=== PATIENT | female | born 1935 | race Caucasian/White ===

== ENCOUNTER 2017-05-13 11:58 | Emergency (ER) | payer MEDICARE ==
[~2017-05-13] VITALS: Ht 152.4 cm; Wt 100.0 kg
[~2017-05-13 11:58] MED LIST: CEPH-512 PO; FURO40TA4 PO; LOSA50TA37 PO; METF850T2 PO; METR1KIT TP; OXYC1TAB24 PO
[2017-05-13 12:06] VITALS: BP 138/47; PULSE 57; O2SAT 93
--- NOTE | 2017-05-13 12:21 | ED.REPORT ---
HPI-General Illness Date of Service May 13, 2017 ED Provider: Rashaun Ovalle MD Patient is an 81 year old female with a hx of HTN and DM who presents to the ED complaining of a continuing L leg infection. Associated symptoms include redness , warmth, and swelling over her L lower leg. She was admitted for 4 days for sepsis and left leg cellulitis before being discharged on Keflex and Oxycodone. She has been on Keflex for 9 days and states the cellulitis is not any worse however has only gotten minimally better. She denies fevers, chills, or any other symptoms. 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 Nursing Notes Stated Complaint: POSSIBLE L LEG INFECTION Chief Complaint: Extremity Trauma Nursing Notes Reviewed: Yes Allergies: Coded Allergies: No Known Allergies (Verified , 05/13/17) Scheduled Cephalexin (Keflex) 500 Mg Capsule 500 MG PO QID Clindamycin (Clindamycin) 300 Mg Capsule 300 MG PO QID Furosemide (Furosemide) 40 Mg Tablet 40 MG PO BID Losartan Potassium (Losartan Potassium) 50 Mg Tablet 50 MG PO DAILY Metformin (Metformin) 850 Mg Tablet 850 MG PO BID Metronidazole/Skin Cleansr #23 (Rosadan 0.75% Cream Kit) 1 Each Kit.cl.crm 1 EACH TP BID Scheduled PRN oxyCODONE-Acetaminophen 5-325 mg (oxyCODONE-Acetaminophen 5-325 mg) 1 Each Tablet 1 TAB PO Q4H PRN PRN For Pain oxyCODONE-Acetaminophen 5-325 mg (oxyCODONE-Acetaminophen 5-325 mg) 1 Each Tablet 1-2 TAB PO Q6H PRN PRN For Pain General Time Seen by MD: 12:21 Chief Complaint Other (Extremity problem ) Hx Obtained From: Patient, Spouse Arrived By: Walk-in Sudden in Onset?: Yes Onset Occurred: More than a week ago... 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 Physical Exam Vital Signs Vital Signs Date Time Temp Pulse Resp B/P Pulse Ox O2 Delivery O2 Flow Rate FiO2 05/13/17 12:06 36.7 57 138/47 93 Room Air Initial VS: Reviewed, Vital signs abnormal Head / Eyes: Atraumatic, Normocephalic Neck: Full range of motion Respiratory: Breath sounds normal, Clear to auscultation, No respiratory distress Cardiovascular: Regular rate & rhythm, Heart sounds normal, Intact distal pulses Abdomen / GI: Soft, Non-tender Skin: Warm, Dry Neurologic: Alert, Oriented, Nonfocal Psychiatric: Mood/affect normal, Behavior normal, Normal thought content General/Constitutional: Awake, Alert, No acute distress Lower Extremity / Pelvis / MS: No deformity Erythema, warmth, and sweeling over the left calf. Tender to palpation. 1 cm ulceration to skin (pt states site of previous dermatology procedure) Interpretation & Diagnostics Lab Results Interpretation Result Diagram: 05/13/17 1314 05/13/17 1314 Test 05/13/17 13:14 White Blood Count 5.4th/mm3 (3.8-10.1) Red Blood Count 3.96mil/mm3 (3.90-5.20) Hemoglobin 12.3g/dL (12.0-15.6) Hematocrit 37.0% (35.0-46.0) Mean Corpuscular Volume 93.4fL (81-100) Mean Corpuscular Hemoglobin 31.1pg (27.0-35.0) Mean Corpuscular Hemoglobin Concent 33.2% (32.0-37.0) Red Cell Distribution Width 14.4% (12.3-15.4) Platelet Count 124bil/L (150-400) Neutrophils (%) (Auto) 63.5% (40-74) Lymphocytes (%) (Auto) 26.4% (14-46) Monocytes (%) (Auto) 7.1% (4-12) Eosinophils (%) (Auto) 2.2% (0-5) Basophils (%) (Auto) 0.4% (0-3) Erythrocyte Sedimentation Rate 20mm/hr (0-40) Sodium Level 139mEq/L (134-144) Potassium Level 4.2mEq/L (3.5-5.2) Chloride Level 104mEq/L (97-108) Carbon Dioxide Level 25mmol/L (18-29) Blood Urea Nitrogen 14mg/dL (8-27) Creatinine 0.74mg/dL (0.57-1.00) Estimat Glomerular Filtration Rate 108mL/min (>59) Glucose Level 222mg/dL (60-99) Lactic Acid Level 1.6mmol/L (0.4-2.0) Calcium Level 8.7mg/dL (8.5-10.1) Total Bilirubin 1.2mg/dL (0.0-1.2) Aspartate Amino Transf (AST/SGOT) 46U/L (0-50) Alanine Aminotransferase (ALT/SGPT) 29U/L (0-32) Alkaline Phosphatase 76U/L (25-165) Total Protein 6.0g/dL (6.4-8.4) Albumin 3.1g/dL (3.4-5.0) Procalcitonin 0.20ng/mL (0.00-0.08) Re-Eval/Medical Decision Med Decision/Clinical Course No DVT on the repeat ultrasound. Patient states that the cellulitis is not worsening but has not resolved. Labs are reassuring as well as vital signs. Discussed admission versus hospitalization. Patient is comfortable going home and trying clindamycin as this may have broader coverage. She agrees to follow-up with her primary care doctor or return to the ER if worse. Time of Eval: 13:59 Re-Evaluation/Progress Note: Rechecked patient and discussed lab results. Good DP pulses. No compartment syndrome. Discussed plan for US. Patient understands and agrees with plan. All questions addressed at this time. Counseled Regarding: Diagnosis, Lab results, Need for follow-up, When/why to return to ED Discharge & Departure Primary Impression: Cellulitis Site of cellulitis: extremity Site of cellulitis of extremity: lower extremity Laterality: left Qualified Code: L03.116 - Cellulitis of left lower limb Disposition: Home Discharge Condition All VS Reviewed: Yes Condition: Improved Patient Instructions: Cellulitis (ED) Additional Instructions: Thank you for entrusting us with your care. Your ultrasound does not show a blood clot. Your labs and exam are reassuring. We did not find a dangerous cause for your symptoms at this time. Take Clindamycin in addition to your Keflex to help resolve your cellulitis. Take Oxycodone as needed for pain. Follow up with your primary doctor in the next few days for re-evaluation. Return to the emergency department for fevers, chills, abdominal pain, weakness , numbness, tingling, chest pain, shortness of breath, or any other new or worsening symptoms. Referrals: OTHER,PHYSICIAN (PCP) (Family) Scribe Attestation Portions of this note were transcribed by Crystal Restrepo. I, Dr. Ovalle personally performed the history, physical exam and medical decision-making; I reviewed and confirmed the accuracy of the information in the transcribed note. Rashaun Ovalle DO May 13, 2017 12:21 CRYSTAL RESTREPO May 13, 2017 12:43
[2017-05-13] MEDS ORDERED: oxyCODONE-Acetamin 5-325 mg Tablet PO ONE (12:45)
[2017-05-13 13:17] LABS: BASOPHILS % (AUTO) 0.4 % (0-3); EOSINOPHILS % (AUTO) 2.2 % (0-5); MONOCYTES % (AUTO) 7.1 % (4-12); Mean Corpuscular Hemoglobin 31.1 pg (27.0-35.0); Mean Corpuscular Volume 93.4 fL (81-100); NEUTROPHILS % (AUTO) 63.5 % (40-74); Platelet Count 124 bil/L (150-400)
[2017-05-13 13:38] LABS: ERYTHROCYTE SEDIMENTATION RATE 20 mm/hr (0-40)
[2017-05-13] MEDS ORDERED: CLIN-78 PO (15:19)
[2017-05-13] MEDS ORDERED: OXYC1TAB24 PO (15:19)
[2017-05-13 15:51] VITALS: BP 136/56; PULSE 59; RESP 16; O2SAT 96
--- NOTE | 2017-05-14 05:38 | DRSVH ---
PROCEDURE: US VEINOUS LEG DUPLEX UNILATERAL, LEFT INDICATIONS: pain, r/o DVT TECHNIQUE: Real-time imaging, as well as color and pulse Doppler interrogation, were performed of the lower extr emity deep veins from the inguinal ligament to the popliteal fossa. COMPARISON: None. FINDINGS: The deep veins are normally compressible, and free of intraluminal thrombus. Color and pu lse Doppler demonstrate normal phasic intraluminal flow. There is normal augmentation response to di stal compression maneuver. IMPRESSION: No deep venous thrombosis identified within the left lower extremity. Dictated by: Edgard Mosquera Mary Alice Interpreted: Dimitrios Olson MD on 05/13/2017 at 16:06 Approved by: Dimitrios Olson M.D. on 05/14/2017 at 4:37
== END 2017-05-13 15:53 | disposition home or self-care (01) ==
LOC: SED 11:58
DX: L03.116 Cellulitis of left lower limb (principal); E11.9 Type 2 diabetes mellitus without complications; I10 Essential (primary) hypertension; Z79.84 Long term (current) use of oral hypoglycemic drugs

== ENCOUNTER 2017-06-10 09:11 | Emergency (ER) | payer MEDICARE ==
[~2017-06-10] VITALS: Ht 152.4 cm; Wt 96.4 kg
[~2017-06-10 09:11] MED LIST changes: +CLIN-78 PO
[2017-06-10 09:13] VITALS: BP 156/81; PULSE 70; RESP 16; O2SAT 100
--- NOTE | 2017-06-10 09:29 | ED.REPORT ---
HPI-Extremity Problem Lower Date of Service Jun 10, 2017 ED Provider: Raymond Urrutia MD The patient is an 81 year old female with a history of chronic leg edema, type II diabetes mellitus, and hypertension who presents to the ED with left lower extremity pain that became increasingly worse one week ago Her pain is also associated with redness, swelling and warmth. Patient is able to bear weight and ambulate on the affected leg. Patient was recently admitted 04/30/2017 for LLE cellulitis and sepsis. The patient presented to the ED on 05/13 for similar symptoms and was started on clindamycin. Her current symptoms feel worse than her previous visit that required admission. The pain began to improve following discharge but returned approx one week ago and has become progressively worse since onset. She currently takes Oxycodone and her last dose was last night. She denies taking any OTC medications for her pain. She denies fever, chills, diaphoresis, numbness/tingling in LE, SOB or chest pain. Patient denies history of DVT or PE. Nursing Notes Stated Complaint: POSSIBLE INFECTION/LEFT LEG Chief Complaint: Extremity Trauma Nursing Notes Reviewed: Yes (Mention Mobile, [employer] not reconciled) Allergies: Coded Allergies: No Known Allergies (Verified , 05/13/17) Scheduled Cephalexin (Keflex) 500 Mg Capsule 500 MG PO QID Clindamycin (Clindamycin) 300 Mg Capsule 300 MG PO QID Clindamycin (Clindamycin) 300 Mg Capsule 300 MG PO QID Furosemide (Furosemide) 40 Mg Tablet 40 MG PO BID Lactobacillus Acidophilus (Probiotic) 1 Each Capsule 1 EACH PO DAILY Losartan Potassium (Losartan Potassium) 50 Mg Tablet 50 MG PO DAILY Metformin (Metformin) 850 Mg Tablet 850 MG PO BID Metronidazole/Skin Cleansr #23 ([place] 0.75% Cream Kit) 1 Each Kit.cl.crm 1 EACH TP BID Scheduled PRN oxyCODONE (oxyCODONE) 5 Mg Tablet 5-10 MG PO Q4H PRN PRN For Pain oxyCODONE-Acetaminophen 5-325 mg (oxyCODONE-Acetaminophen 5-325 mg) 1 Each Tablet 1 TAB PO Q4H PRN PRN For Pain oxyCODONE-Acetaminophen 5-325 mg (oxyCODONE-Acetaminophen 5-325 mg) 1 Each Tablet 1-2 TAB PO Q6H PRN PRN For Pain General Time Seen by MD: 09:23 Chief Complaint Leg injury left Hx Obtained From: Patient Arrived By: Walk-in Onset Occurred: 1 week ago Symptom Duration: Since onset Location: : Leg left Quality: Painful Severity: Current: Moderate Severity: Maximum: Moderate Associated with: Reports: Swelling, Denies: Chest pain, Dyspnea, Fever, Numb extremities, Unable to bear weight, Unable to move joint, Unable to walk Pertinent Negative: Pt denies other symptoms Recent Healthcare: Recent doctor visit, Recent hospitalization Similar Sx Previous: Yes Past Medical History 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 or sepsis and LLE cellulitis 04/30- (MRSA screen negative, Initial Rx Vanc + Zosyn-> DC on Keflex) - Pt revisited the ED on 05/13/2017 for similar leg edema and was placed on Clindamycin Past Medical History Hx of leg swelling Hx of sepsis from left lower extremity cellulitis April 2017 Hx of chronic edema Hx of elevated LFT's (thought secondary to sepsis, resolved) Hx of thrombocytopenia Reports: Diabetes mellitus (Type II), Hypertension Past Surgical History Bilateral knee arthoplasty Smoking History Unknown if Ever Smoker Social History Other Social History: Good social support, , Local resident Ambulatory Status Independent Review of Systems + Warmth LLE Constitutional: Denies: Chills, Fever Musculoskeletal: Reports: Extremity pain (LLE), Extremity swelling (LLE) Skin: Denies Diaphoresis Neurologic: Denies: Numbness Complete sys rev & neg: except as marked. Respiratory: Denies: Shortness of breath Cardiovascular: Denies: Chest pain Physical Exam Initial Vital Signs Vital Signs (First) Date Time Temp Pulse Resp B/P Pulse Ox O2 Delivery O2 Flow Rate FiO2 06/10/17 09:13 36.6 70 16 156/81 100 Room Air Initial VS: Reviewed Head / Eyes: Atraumatic, Normocephalic, PERRL Neck: Supple, Non-tender, Full range of motion Upper Extremities: Vascular intact, Neuro intact, No swelling, No tenderness Skin: Warm, Dry, No cyanosis Neurologic: Alert, Oriented, Nonfocal Psychiatric: Mood/affect normal, Behavior normal, Normal thought content Lower Extremity / Pelvis / MS: Atraumatic, Neurologic intact, Vascular intact ( Good DP and PT pulses) Lower Ext Brief Normals: Leg / calf R exam normal Left Leg / Calf: Positive: Erythema present (Faint erythema present without evidence of cellulitis), L calf > R calf, Swelling present... (Brawny edema present LLE), Tenderness present..., Warmth present LOWER EXTREMITIES: Induration present LLE No open wounds Ankle / Foot: Atraumatic, Neurologic intact, Vascular intact General/Constitutional: Awake, Alert, No acute distress Respiratory / Chest: Atraumatic, Breath sounds NL, Breath sounds = bilat, No respiratory distress Cardiovascular: Heart rate NL, Regular rhythm, Heart sounds NL Lower Ext Edema: Positive: Non-Pitting (Brawny edema present LLE) Interpretation & Diagnostics Lower Extremity CT w/ contrast Read by Radiology IMPRESSION: 1. Limited evaluation of the knee secondary to arthroplasty artifact. 2. Otherwise, no acute fracture. No osseous lesion. If symptoms and/or clinical suspicion for pathology persist, further assessment with repeat, or advanced imaging (e.g., CT, MRI, or bone scan) may be helpful for further assessment. 3. Subcutaneous cellulitis versus edema within the calf and foot. Dictated by: Jody Hoyos M.D. on 06/10/2017 at 13:10 Lab Results Interpretation Result Diagram: 06/10/17 1015 06/10/17 1015 Test 06/10/17 10:15 06/10/17 10:33 White Blood Count 5.0th/mm3 (3.8-10.1) Red Blood Count 3.75mil/mm3 (3.90-5.20) Hemoglobin 11.5g/dL (12.0-15.6) Hematocrit 34.4% (35.0-46.0) Mean Corpuscular Volume 91.7fL (81-100) Mean Corpuscular Hemoglobin 30.7pg (27.0-35.0) Mean Corpuscular Hemoglobin Concent 33.4% (32.0-37.0) Red Cell Distribution Width 14.8% (12.3-15.4) Platelet Count 86bil/L (150-400) Neutrophils (%) (Auto) 57.1% (40-74) Lymphocytes (%) (Auto) 32.1% (14-46) Monocytes (%) (Auto) 7.8% (4-12) Eosinophils (%) (Auto) 2.8% (0-5) Basophils (%) (Auto) 0.2% (0-3) Erythrocyte Sedimentation Rate 20mm/hr (0-40) Sodium Level 139mEq/L (134-144) Potassium Level 4.7mEq/L (3.5-5.2) Chloride Level 106mEq/L (97-108) Carbon Dioxide Level 21mmol/L (18-29) Blood Urea Nitrogen 13mg/dL (8-27) Creatinine 0.60mg/dL (0.57-1.00) Estimat Glomerular Filtration Rate 137mL/min (>59) Glucose Level 219mg/dL (60-99) Calcium Level 8.6mg/dL (8.5-10.1) Total Bilirubin 1.0mg/dL (0.0-1.2) Aspartate Amino Transf (AST/SGOT) 55U/L (0-50) Alanine Aminotransferase (ALT/SGPT) 31U/L (0-32) Alkaline Phosphatase 77U/L (25-165) Total Protein 6.2g/dL (6.4-8.4) Albumin 3.5g/dL (3.4-5.0) Lactic Acid Level 1.6mmol/L (0.4-2.0) Lab Results Interpretation: CBC normal except for mild nonspecific thrombocytopenia (chronic) CMP mild hyperglycemia blood cultures 2 pending Normal lactic acid US Soft Tissue/Musculoskeletal IMPRESSION: Negative for DVT Dictated by: Miguel A Pulliam M.D. on 06/10/2017 at 12:05 Exam Interpreted by: Radiologist Re-Eval/Medical Decision Med Decision/Clinical Course This is an 81-year-old female was admitted for a cellulitis with severe sepsis in April the left lower extremity, as continue to have some mild persistent discomfort ever since-now presents with an acute worsening with redness swelling and pain over the past couple days. She has not had fevers chills or altered mental status or the severe symptoms she had before, but reports the pain is quite extreme. She is highly concerned. She has no pulmonary symptoms. On exam she does appear to have some edema and some warmth, and feet erythema- there is some induration but not direct severe cellulitis. There is swelling of the left leg compared to the right. She has good pulses no evidence of arterial insufficiency. His marked pain along the calf. There are no current open wounds likely were previously. Repeat ultrasounds obtained was negative for DVT. Family is really concerned regarding the recurrence and concerned about a deeper process, so ultimately a CT was obtained as the patient did not think her knee replacement with tolerate L was MRI compatible, no deep space process was identified. Patient does not have an elevated fever, tachycardia, clinical sepsis, leukocytosis, or lactic acidosis-and I have gone ahead and restart the patient back on clindamycin which worked well. The plan is discharge on her current dose of clindamycin, I talked about compression stockings once a cellulitis has resolved, and providing some additional pain medicine, probiotics, and the patient to follow- up with her PCP for reevaluation. Routine return precautions reviewed. Patient 's discharge improved condition. Source of Hx: Old records Re-Evaluation/Progress #1: Time of Eval: 09:43 Re-Evaluation/Progress Note: All questions about potential involvement of possible specialty consults are addressed at this time. agrees with the plan to obtain US imaging. Re-Evaluation/Progress #2: Time of Eval: 13:42 Patient Status: Condition improved, Pain improved Re-Evaluation/Progress Note: Patient condition is re-evaluated. She is informed of her results and diagnosis. All questions about current results and previous results are addressed. The patient understands and agrees with the current plan. She is given strict return precautions and is agreeable to discharge at this time. Differential Diagnosis: Positive: Cellulitis, Negative: Abrasion, Compartment syndrome, Hip fracture, Intertrochanteric fractur, Puncture wound, Subungual hematoma, Superficial thrombophleb, Venous thromboembolism Counseled Regarding: Diagnosis, Lab results, Need for follow-up, When/why to return to ED Discharge & Departure Impression: Primary Impression: Cellulitis Site of cellulitis: extremity Site of cellulitis of extremity: lower extremity Laterality: left Qualified Code: L03.116 - Cellulitis of left lower limb Additional Impression: Chronic idiopathic thrombocytopenia Disposition: Home Discharge Condition All VS Reviewed: Yes Condition: Improved Patient Instructions: Cellulitis (ED), Leg Edema (ED) Additional Instructions: 1. You do appear to have recurrent cellulitis which is a skin infection of the left leg. You had a repeat ultrasound today that revealed no blood clot. you also had a CT scan of the leg to look for signs of a deeper infection given your persistent and recurrent symptoms-however the process appears limited to superficial involvement of the skin. 2. Your blood tests were normal. You do have "blood cultures" pending that will take a couple of days for final results. We will call you if they are abnormal. 3. Take the antibiotic clindamycin 300 mg 4 times a day for 10 days. 4. Recommend taking the "probiotics" daily while you are taking the antibiotic , and then for another 2 weeks thereafter to replace the normal healthy bacteria of the intestine that are accidentally killed by the antibiotic you are taking for the leg infection. 5. Keep the leg elevated over these next several days. 6. Take Tylenol 1000 mg up to 4 times a day as needed for pain. 7. If needed take oxycodone 5 mg 1-2 tabs up to every 4-6 hours for more severe pain. Start with 1 tablet only. Use sparingly. Note: This medication contains narcotic and causes drowsiness and constipation, no driving for at least 4 hours after taking, and use sparingly. I am prescribing the version of oxycodone without Tylenol, use can safely take Tylenol throughout the day-and not worry about taking too much Tylenol if you need to take this medicine as well. 8. Once the initial infection is getting better, I strongly recommend that you wear compression stockings. I would recommend getting a nonprescription milder strength compression stocking below the knee from the drugstore to wear initially 4 week, before transitioning to the stronger compression stockings you have at home that were initially uncomfortable. Alternatively, you can rapidly leg in an Derick wrap for several days to help provide initial compression to reduce the swelling. This is typically the most effective way to reduce edema and prevent recurrent infections in the long-term. 9. Return again if new or worsening or uncontrolled symptoms occur. 10. Call for a follow up appointment with your doctor. Referrals: OTHER,PHYSICIAN (PCP) (Family) Scribe Attestation Portions of this note were transcribed by Ana Maria Dukes. I, Dr. Urrutia, personally performed the history, physical exam and medical decision-making; I reviewed and confirmed the accuracy of the information in the transcribed note. Signed by: Ana Maria Dukes, 06/10/17. Raymond Urrutia MD Jun 10, 2017 09:29 ANA MARIA DUKES Jun 10, 2017 09:38
[2017-06-10] MEDS ORDERED: HYDROmorphone 0.5 mg/0.5 mL iSecure Syringe IVPUSH PRN (09:45)
[2017-06-10] MEDS ORDERED: Ondansetron 2 mg/mL 2 mL Inj IVPUSH ONE (09:45)
[2017-06-10] MEDS ORDERED: Clindamycin Inj 900 MG in IV Premix 1 EACH IV ONE (09:50)
[2017-06-10] MEDS ORDERED: 0.9% Sodium Chloride 100 ML IV ONE (10:27)
[2017-06-10 10:50] LABS: BASOPHILS % (AUTO) 0.2 % (0-3); EOSINOPHILS % (AUTO) 2.8 % (0-5)
[2017-06-10 11:08] LABS: MONOCYTES % (AUTO) 7.8 % (4-12); Mean Corpuscular Hemoglobin 30.7 pg (27.0-35.0); Mean Corpuscular Volume 91.7 fL (81-100); NEUTROPHILS % (AUTO) 57.1 % (40-74); Platelet Count 86 bil/L (150-400)
[2017-06-10 11:45] LABS: ERYTHROCYTE SEDIMENTATION RATE 20 mm/hr (0-40)
--- NOTE | 2017-06-10 12:07 | DRSVH ---
PROCEDURE: US VEINOUS LEG DUPLEX UNILATERAL, LEFT INDICATIONS: LLE Swelling and pain TECHNIQUE: Real-time imaging, as well as color and pulse Doppler interrogation, were performed of the lower extr emity deep veins from the inguinal ligament to the popliteal fossa. COMPARISON: 05/13/2017 . FINDINGS: The deep veins are normally compressible, and free of intraluminal thrombus. Color and pu lse Doppler demonstrate normal phasic intraluminal flow. There is normal augmentation response to di stal compression maneuver. IMPRESSION: Negative for DVT Dictated by: Miguel A Pulliam M.D. on 06/10/2017 at 12:05 Approved by: Miguel A Pulliam M.D. on 06/10/2017 at 12:06
--- NOTE | 2017-06-10 13:15 | DRSVH ---
PROCEDURE: CT TIBIA FIBULA LEFT WITH CONTRAST (85199) INDICATIONS: pain, recurrent infections TECHNIQUE: After the administration of intravenous contrast, 3 mm axial sections acquired of the left leg, with coronal and sagittal reformats. For radiation dose reduction, the following was used: automated exp osure control, adjustment of mA and/or kV according to patient size. COMPARISON: None. FINDINGS: Image quality: Examination is limited by metallic artifact. Bones: Visualized osseous structures are grossly unremarkable. No fracture, nor osseous lesion. Dista l femur and proximal tibia are suboptimally evaluated secondary to knee arthroplasty artifact. Soft tissues: Moderate subcutaneous fat stranding throughout the calf. Severe subcutaneous fat strand ing within the midfoot and hindfoot. IMPRESSION: 1. Limited evaluation of the knee secondary to arthroplasty artifact. 2. Otherwise, no acute fracture. No osseous lesion. If symptoms and/or clinical suspicion for patholo gy persist, further assessment with repeat, or advanced imaging (e.g., CT, MRI, or bone scan) may be helpful for further assessment. 3. Subcutaneous cellulitis versus edema within the calf and foot. Dictated by: Jody Hoyos M.D. on 06/10/2017 at 13:10 Approved by: Jody Hoyos M.D. on 06/10/2017 at 13:14
[2017-06-10] MEDS ORDERED: LACT1CAP65 PO (14:16)
[2017-06-10] MEDS ORDERED: CLIN-78 PO (14:16)
[2017-06-10] MEDS ORDERED: OXYC5TAB72 PO (14:16)
[2017-06-10 14:49] VITALS: PULSE 78; RESP 14
== END 2017-06-10 14:50 | disposition home or self-care (01) ==
LOC: SED 09:11
DX: L03.116 Cellulitis of left lower limb (principal); D69.3 Immune thrombocytopenic purpura; I10 Essential (primary) hypertension; E11.9 Type 2 diabetes mellitus without complications; Z98.890 Other specified postprocedural states; Z79.84 Long term (current) use of oral hypoglycemic drugs
CPT/HCPCS: 36415; 73701; 80053; 83605; 85025; 85651; 87040; 93970; 96365; 96375; 99285; J2405; J3490; Q9967